=== PATIENT | female | born 1940 | race African-American/Black ===

== ENCOUNTER 2019-05-08 07:45 | Day surgery (SDC) | payer OTHER ==
[2019-05-01 13:17] VITALS: BMI 17.9
[2019-05-08] MEDS ORDERED: PROPOFOL 20 ML ONE (09:33)
[2019-05-08] MEDS ORDERED: LIDOCAINE HCL/PF 2% SDV 5ML VIAL ONE (09:33)
[2019-05-08 10:14] VITALS: TEMP 98.3
[2019-05-08 10:53] VITALS: BP 149/82; PULSE 76
== END 2019-05-08 10:50 | disposition home or self-care (01) ==
LOC: FASU 07:45
PROVIDERS: ATTEND Internal Medicine Gastroenterology
PROC: 0DJD8ZZ Inspection of Lower Intestinal Tract, Via Natural or Artificial Opening Endoscopic (ICD-10-PCS; principal; 2019-05-08 09:49)
DX: K57.30 Diverticulosis of large intestine without perforation or abscess without bleeding (principal); R19.4 Change in bowel habit